=== PATIENT | male | born 1990 | race Two or more races ===

== ENCOUNTER 2023-09-21 18:50 | Inpatient (IN) | payer MEDICARE, MEDICAID, SELFPAY ==
--- NOTE | 2023-09-21 19:23 | PC.NURSE ---
Pt was accepted and admitted on the unit at 1905 via stretcher from [facility]. Skin check completed, skin intact. VSS, pt reports feeling safe on unit.
[2023-09-21 19:25] VITALS: BP 136/87; PULSE 84; RESP 18; TEMP 36.8; O2SAT 97
[2023-09-21 19:26] VITALS: BMI 33.5
[2023-09-21] MEDS: traZODone HCL 50 MG TABLET PO ×2 (21:16→22:18)
--- NOTE | 2023-09-21 21:31 | PC.ADMIT ---
Omar is a 33-year-old male admitted from [facility] ED to M3 on a CV for treatment of increased depression and SI. Pt signed a 3-day upon arrival. Tox screen positive for THC. Pt was recently at [facility] but was discharged after a few days because I was really overwhelmed. Crisis eval states that pt attempted to hang himself but pt denied this and stated I just had thoughts of it but didn't actually do it. I tried to hang myself in the past but I failed. I regret saying I want to hurt myself because I don't want to do that to my kids. 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 Pt stated he sold his home after he found his with someone else and he's been living with his mother but wants to get a place of his own. Upon arrival pt was pleasant and cooperative. Pt was very tearful and needed frequent reassurance about being here. Mood was depressed with congruent affect. Pt denied AH/VH. Thoughts are linear and organized. Pt reports poor appetite and 60 lb weight loss in a year. Pt reports poor sleep due to nightmares and hopes to take medication to help with this. Pt only takes Levothyroxine for s/p thyroidectomy. Pt does not have any psych providers but would like to be set up with providers upon discharge. Pt also has medical hx of albinism, hermansky-pudlak syndrome, and was also diagnosed with squamous cell carcinoma but has not followed up with providers. Pt reports feeling safe on the unit. Pt denies SI/HI but will reach out to staff if thoughts occur. Pt placed on 5-minute safety checks.
[2023-09-21] MEDS: hydrOXYzine HCL 25 MG TABLET PO (22:18)
[2023-09-22 07:51] VITALS: BP 104/54; PULSE 62; RESP 18; TEMP 36.7; O2SAT 96
[2023-09-22 08:38] LABS: Alanine Aminotransferase 17 U/L (0-40); Albumin Level 4.1 g/dL (3.5-5.0); Alkaline Phosphatase 104 U/L (39-117); Anion Gap 11 (12-20); Aspartate Amino Transferase 18 U/L (5-37); Bilirubin Total 1.1 mg/dL (0.0-1.0); Blood Urea Nitrogen 10 mg/dL (9-16); Calcium 9.6 mg/dL (8.4-10.2); Carbon Dioxide 25 mmol/L (22-29); Chloride 109 mmol/L (96-108); Cholesterol 164 mg/dL (<200); Creatinine Clr Calc Pharmacy 118.8; Estimated Glomerular Filt Rate > 60; Glucose Fasting 85 mg/dL (60-99); HDL Cholesterol 28 mg/dL (>40); LDL Cholesterol Calculated 116 mg/dL (<100); Potassium 3.9 mmol/L (3.3-5.1); Sodium 141 mmol/L (135-145); Total Protein 7.1 g/dL (6.5-8.0); Triglycerides 101 mg/dL (<150)
--- NOTE | 2023-09-22 11:17 | HO.PM.IMCN ---
History of Present Illness Data of Consult Service Date: 09/22/23 Primary Care Provider: Ann Butts MD HPI Reason for consult: Admission H&P Pt is a 33-year-old male with a PMH significant for?albinism, legally blind, hyperthyroidism s/p thyroidectomy in 2010, cannabis use disorder, and depression who is admitted to psychiatry unit for increasing depression with SI with plan to hang himself. Medical consult for admission H&P. Patient reports he has been smoking 12 g of marijuana daily but decided to cold turkey last and since then has been feeling increased anxiety and depression. Denies alcohol or any other substance use. Patient has a history of albinism and is legally blind with significant resting nystagmus for which he wears glasses and help him focus, though he still can not see fine details. Reports has had nystagmus since he was born. Denies any acute changes to his vision. Denies any acute medical complaints at this time. No chest pain/pressure, palpitations. Denies shortness of breath. No fever, chills, nausea, vomiting, abdominal pain. Labs reviewed, grossly unremarkable. Review of Systems Review of Systems: Chronic legal blindness Chronic nystagmus Patient denies any acute medical complaints [facility] Medical History (Updated 09/22/23 @ 12:19 by ADY Lobo) Hyperthyroidism Nystagmus Legally blind Albinism Surgical History (Updated 09/22/23 @ 12:18 by ADY Lobo) H/O thyroidectomy Social History Household Members: Family Housing: House Patient Tobacco Use Status: Never used Tobacco Use of substances other than those prescribed or required for medical reasons: Yes Substance Use Type: Marijuana Substance Use Frequency: Chronic Longstanding Last Used Substance: Just Prior to Admission Currently Displaying Signs/Symptoms of Drug Intoxication Withdrawal: No Any prior treatment program specific to substance use: No Have you been hit, kicked, punched, or otherwise hurt by someone within the past year? If so, by whom?: No Do you feel safe in your current relationship?: No Current Relationship Is there a partner from a previous relationship who is making you feel unsafe now?: No Are you made to feel afraid or neglected: No Advance Directives: No Advance Directives Information Provided: No Advance Directives on File: No Do you have thoughts of harming others: None Do you have a plan to hurt others: No Plan Recently lost weight without trying: Yes How much weight loss: 34pounds or more Eating poorly because of decreased appetite: Yes Nutrition screen score: 7 Nutrition Risks: No Nutritional Risk Poor oral hygiene: No Meds Allergies Allergy/AdvReac Type Severity Reaction Status Date / Time acetaminophen [From Tylenol] Allergy Unknown Verified 09/21/23 19:25 Penicillins Allergy Unknown Verified 09/21/23 19:25 lactose AdvReac Unknown Verified 09/21/23 19:25 Active Medications: Current Medications Al Hydroxide/Mg Hydroxide (Magnesium Hydrox/Alum Hydrox 30 Ml Oral.Susp) 30 ml PO Q6H PRN PRN Reason: Heartburn/Nausea Hydroxyzine HCl (Hydroxyzine Hcl 25 Mg Tablet) 25 mg PO Q6H PRN PRN Reason: Anxiety Last Admin: 09/21/23 22:18 Dose: 25 mg Magnesium Hydroxide (Milk Of Magnesia 30 Ml Oral.Susp) 30 ml PO DAILY PRN PRN Reason: Constipation Trazodone HCl (Trazodone Hcl 50 Mg Tablet) 50 mg PO BEDTIME MRX1 PRN PRN Reason: Insomnia Last Admin: 09/21/23 22:18 Dose: 50 mg Home Medications ?Medication ?Instructions ?Recorded ?Confirmed ?Last Taken ?Type levothyroxine 150 mcg tablet 150 mcg PO DAILY 09/21/23 09/21/23 09/21/23 08:00 History Physical Exam Vital Signs and Narrative: Vital Signs: Last Vital Signs Temp 98.0 F 09/22/23 07:51 Pulse 62 09/22/23 07:51 Resp 18 09/22/23 07:51 BP 104/54 L 09/22/23 07:51 Pulse Ox 96 09/22/23 07:51 O2 Del Method Room Air 09/22/23 07:51 BMI result Body Mass Index 33.5 General: AOx3, no acute distress Resp: CTA bilaterally CVS: S1, S2, RRR GI: +BS, NT, no distention Skin: Warm, dry Neuro: Cranial nerves II-XII grossly intact bilaterally. Motor grossly intact bilaterally. Significant resting nystagmus and strabismus. Extremities: No edema Psych: Flat affect Results Labs 09/22/23 08:05 Labs: Laboratory Results - last 24 hr 09/22/23 08:05 Anion Gap 11 L Estim Creat Clear Calc 118.8 Estimated GFR > 60 Fasting Glucose 85 Calcium 9.6 Total Bilirubin 1.1 H AST 18 ALT 17 Alkaline Phosphatase 104 Total Protein 7.1 Albumin 4.1 Triglycerides 101 Cholesterol 164 LDL Cholesterol, Calc 116 H HDL Cholesterol 28 L Assessment and Plan (1) Medical clearance for psychiatric admission: Status: Acute Plan Pt is a 33-year-old male with a PMH significant for?albinism, legally blind, hyperthyroidism s/p thyroidectomy in 2010, cannabis use disorder, and depression who is admitted to M3 psychiatry unit for increasing depression with SI with plan to hang himself. Medical consult for admission H&P. Mood disorder Plan as per Psychiatry Nystagmus and strabismus Congenital, secondary to albinism Patient has been legally blind since Patient denies any acute vision changes Should wear glasses while on the unit No additional workup indicated at this Hyperthyroidism S/P thyroidectomy in 2010 Continue levothyroxine Marijuana use disorder Reports smoking around 12 g daily Last used 1 week prior Plan as per Psychiatry Thank you for allowing us to participate in the care of this patient. Signing off at this time. Please re-consult if any acute complaints or issues arise.
[2023-09-22] MEDS: Levothyroxine Sodium 150 MCG TABLET PO (12:33)
--- NOTE | 2023-09-22 13:27 | P.HPPS_ITS ---
HPI Date of Service: 09/22/23 Chief Complaint: depression severe Sources of Information: patient interviewed, chart reviewed and crisis/core team assessment reviewed HPI Subjective Notes: Molina Warning, Conditional Voluntary and 3 Day Narrative: Patient is a 33 year old male with hx of MDD and PTSD, who presented to [facility] d/t suicidal ideation secondary to increased depressive symptoms. Per crisis report, pt was brought to ER by his mother after expressing suicidal ideation. Pt reported leaving inpatient too early due to being scared since it was his first inpatient admission . Pt reported increased depression and anxiety d/t life stress. Pt reported suicidal ideation with plan to hang himself. He reports poor appetite and poor sleep. denies HI/AH/VH. During admission assessment, pt presents alert, oriented, calm, cooperative. Pt reports feeling anxious and depressed ; pt stated, I was having thoughts of suicide and came to the hospital. I was at [facility] a month ago for the same thing but left too early. I tried to hang myself but I stopped because I thought it was selfish and didn't want to do that to my kids . 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 Because of the depression, I mishandled all my money. Now I'm living with my mother . Pt stated, I know that I need help and I'm willing to accept it. I can't stay here long because I have to return to work . Pt reported he signed 3 day notice. Pt denies SI/HI/VH/AH. He would like a referral to outpatient therapist and prescriber. Pt reports he would like help with my depression and sleep ; discussed prazosin and remeron;risks/benefits discussed; pt agreed to trial. Past Psychiatric History: SA: by hanging himself a month ago; reported he stopped himself d/t thinking he was selfish and didn't want to do that to my kids . Crisis report states he attempted to jump from [place] but was stopped prior to jumping ; pt reports this is not true and was walking past the bridge with no intention of jumping . denies any outpatient psychiatric providers. denies any hx of psychiatric medications. 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 Substance History: Marijuana. denies any other substance use. UTOX positive for cannabinoids. Trauma History: yes Diagnostics Vital Signs (24Hr): Vital Signs - 24 hr 09/21/23 19:25 09/22/23 07:51 Temperature 98.2 F 98.0 F Pulse Rate 84 62 Respiratory Rate 18 18 Blood Pressure 136/87 104/54 L Pulse Oximetry 97 96 Oxygen Delivery Method Room Air Room Air BMI result Body Mass Index 33.5 Labs 09/22/23 08:05 Labs: Laboratory Results - last 48 hr 09/22/23 08:05 Sodium 141 Potassium 3.9 Chloride 109 H Carbon Dioxide 25 Anion Gap 11 L BUN 10 Creatinine 0.91 Estim Creat Clear Calc 118.8 Estimated GFR > 60 Fasting Glucose 85 Calcium 9.6 Total Bilirubin 1.1 H AST 18 ALT 17 Alkaline Phosphatase 104 Total Protein 7.1 Albumin 4.1 Triglycerides 101 Cholesterol 164 LDL Cholesterol, Calc 116 H HDL Cholesterol 28 L Meds/Allergies Meds Home Medications ?Medication ?Instructions ?Recorded ?Confirmed ?Type levothyroxine 150 mcg tablet 150 mcg PO DAILY 09/21/23 09/21/23 History Allergies Allergies Allergy/AdvReac Type Severity Reaction Status Date / Time acetaminophen [From Tylenol] Allergy Unknown Verified 09/21/23 19:25 Penicillins Allergy Unknown Verified 09/21/23 19:25 lactose AdvReac Unknown Verified 09/21/23 19:25 Mental Status Exam Mental Status Exam Narrative: Pt is alert and oriented; behavior is cooperative and calm; dressed in casual attire; mood is described as depressed ; eye contact appropriate; Speech is normal rate, volume and not pressured; thought process is organized and goal directed; Thought content is on tx; otherwise pertinent to relevant topics and without any delusional content, paranoid ideations or grandiosity; denies SI/HI/VH/AH. Assessment & Plan Assessment & Plan (1) MDD (major depressive disorder), recurrent episode, severe: Status: Acute Code(s): F33.2 - Major depressive disorder, recurrent severe without psychotic features (2) PTSD (post-traumatic stress disorder): Status: Acute Code(s): F43.10 - Post-traumatic stress disorder, unspecified Plan Patient is a 33 year old male with hx of MDD who presented to [facility] d/t suicidal ideation secondary to increased depressive symptoms. Plan: / 3 day notice 15 minute safety checks referral to outpatient therapist and prescriber discharge planning Start: Prazosin 1mg PO bedtime Remeron 15mg PO bedtime Patient educated on: diagnosis, medication risk/benefits and therapeutic strategies Informed Consent: understands Reason for continued inpatient stay Substantial Risk for: harm to self and med/psych decompensation Statement Statement: I have reviewed the history and physical and performed a pertinent examination on my patient. No changes have occurred unless specified. If the History and Physical was not performed prior to admission, the Hospitalist's service will be consulted for completing the admission physical. Time Spent With Patient Time: Total time managing care of this patient today _60___ minutes.
[2023-09-22 20:00] VITALS: BP 149/70; PULSE 108; RESP 16; TEMP 36.3; O2SAT 97
[2023-09-22] MEDS: Mirtazapine 15 MG TABLET PO (20:07)
[2023-09-22] MEDS: hydrOXYzine HCL 25 MG TABLET PO (20:07)
[2023-09-22] MEDS: traZODone HCL 50 MG TABLET PO (20:07)
[2023-09-22 20:08] VITALS: BP 149/70
[2023-09-22] MEDS: Prazosin HCL 1 MG CAPSULE PO (20:08)
[2023-09-23] MEDS: Levothyroxine Sodium 150 MCG TABLET PO (06:28)
[2023-09-23 08:00] VITALS: BP 120/68; PULSE 61; RESP 16; TEMP 36.8; O2SAT 95
--- NOTE | 2023-09-23 13:08 | P.PNPSI_ITS ---
Subjective Subjective Date of Service: 09/23/23 Reason For Visit: depression severe Subjective Notes: 3 Day Interim History: Reviewed with Dr. Hughes. Pt reports feeling okay today; pt stated, I woke up in a better mood today. I'm trying to think about the future. I plan on following through with outpatient therapist and doctor . Pt reports sleeping well. denies SI/HI/VH/AH. Medication Compliance: Yes Side effects from medications: No Attending Groups: Yes Review of Systems Review of Systems Chronic legal blindness Chronic nystagmus Patient denies any acute medical complaints Constitutional: Reports as per HPI Eyes: Reports as per HPI Reports as per HPI Cardiovascular: Reports as per HPI Respiratory: Reports as per HPI Gastrointestinal: Reports as per HPI Genitourinary: Reports as per HPI Musculoskeletal: Reports as per HPI Skin/Breast: Reports as per HPI Reports as per HPI Psychiatric: Reports as per HPI Endocrine: Reports as per HPI Hematologic/Lymphatic: Reports as per HPI Allergic/Immunologic: Reports as per HPI Mental Status Exam Mental Status Exam Narrative: Pt is alert and oriented; behavior is cooperative and calm; dressed in casual attire; mood is described as okay ; eye contact appropriate; Speech is normal rate, volume and not pressured; thought process is organized and goal directed; Thought content is on tx; otherwise pertinent to relevant topics and without any delusional content, paranoid ideations or grandiosity; denies SI/HI/VH/AH. Diagnostics Vital Signs (24Hr): Vital Signs - 24 hr 09/22/23 20:00 09/22/23 20:08 09/23/23 08:00 Temperature 97.4 F 98.2 F Pulse Rate 108 H 61 Respiratory Rate 16 16 Blood Pressure 149/70 H 149/70 H 120/68 Pulse Oximetry 97 95 Oxygen Delivery Method Room Air Room Air BMI result Body Mass Index 33.5 Labs 09/22/23 08:05 Labs: Laboratory Results - last 48 hr 09/22/23 08:05 Sodium 141 Potassium 3.9 Chloride 109 H Carbon Dioxide 25 Anion Gap 11 L BUN 10 Creatinine 0.91 Estim Creat Clear Calc 118.8 Estimated GFR > 60 Fasting Glucose 85 Calcium 9.6 Total Bilirubin 1.1 H AST 18 ALT 17 Alkaline Phosphatase 104 Total Protein 7.1 Albumin 4.1 Triglycerides 101 Cholesterol 164 LDL Cholesterol, Calc 116 H HDL Cholesterol 28 L Medications Medications Current Medications Al Hydroxide/Mg Hydroxide (Magnesium Hydrox/Alum Hydrox 30 Ml Oral.Susp) 30 ml PO Q6H PRN PRN Reason: Heartburn/Nausea Hydroxyzine HCl (Hydroxyzine Hcl 25 Mg Tablet) 25 mg PO Q6H PRN PRN Reason: Anxiety Last Admin: 09/22/23 20:07 Dose: 25 mg Levothyroxine Sodium (Levothyroxine Sodium 150 Mcg Tablet) 150 mcg PO DAILY@0600 [facility] Last Admin: 09/23/23 06:28 Dose: 150 mcg Magnesium Hydroxide (Milk Of Magnesia 30 Ml Oral.Susp) 30 ml PO DAILY PRN PRN Reason: Constipation Mirtazapine (Mirtazapine 15 Mg Tablet) 15 mg PO BEDTIME ROSANA Last Admin: 09/22/23 20:07 Dose: 15 mg Prazosin HCl (Prazosin Hcl 1 Mg Capsule) 1 mg PO BEDTIME [facility]; Protocol Last Admin: 09/22/23 20:08 Dose: 1 mg Trazodone HCl (Trazodone Hcl 50 Mg Tablet) 50 mg PO BEDTIME MRX1 PRN PRN Reason: Insomnia Last Admin: 09/22/23 20:07 Dose: 50 mg Allergies Allergies Allergy/AdvReac Type Severity Reaction Status Date / Time acetaminophen [From Tylenol] Allergy Unknown Verified 09/21/23 19:25 Penicillins Allergy Unknown Verified 09/21/23 19:25 lactose AdvReac Unknown Verified 09/21/23 19:25 Assessment & Plan Assessment & Plan (1) MDD (major depressive disorder), recurrent episode, severe: Status: Acute Code(s): F33.2 - Major depressive disorder, recurrent severe without psychotic features (2) PTSD (post-traumatic stress disorder): Status: Acute Code(s): F43.10 - Post-traumatic stress disorder, unspecified Plan Patient is a 33 year old male with hx of MDD who presented to [facility] d/t suicidal ideation secondary to increased depressive symptoms. Plan: / 3 day notice 15 minute safety checks referral to outpatient therapist and prescriber discharge planning Start: Prazosin 1mg PO bedtime Remeron 15mg PO bedtime 09/22: Pt reports feeling okay today; pt stated, I woke up in a better mood today. I'm trying to think about the future. I plan on following through with outpatient therapist and doctor . Pt reports sleeping well. denies SI/HI/VH/AH. Continue current tx plan. Patient educated on: diagnosis, medication risk/benefits and therapeutic strategies Informed Consent: understands Reason for continued inpatient stay Substantial Risk for: med/psych decompensation Time Spent With Patient Time: Total time managing care of this patient today _20___ minutes.
[2023-09-23] MEDS: Triamcinolone Acet 0.1 % Cream 15 GM TUBE 1 APPL TOPICAL (18:29)
[2023-09-23 20:00] VITALS: BP 122/68; PULSE 94; RESP 16; TEMP 37.3; O2SAT 96
[2023-09-23] MEDS: traZODone HCL 50 MG TABLET PO ×2 (20:40→22:01)
[2023-09-23] MEDS: Mirtazapine 15 MG TABLET PO (20:40)
[2023-09-23 20:47] VITALS: BP 122/68
[2023-09-23] MEDS: Prazosin HCL 1 MG CAPSULE PO (20:47)
[2023-09-24 07:40] VITALS: BP 102/59; PULSE 69; RESP 14; TEMP 36.9; O2SAT 95
[2023-09-24] MEDS: Levothyroxine Sodium 150 MCG TABLET PO (08:44)
[2023-09-24] MEDS: Triamcinolone Acet 0.1 % Cream 15 GM TUBE 1 APPL TOPICAL (10:35)
--- NOTE | 2023-09-24 17:00 | HO.PSYCHPN ---
Subjective Subjective Date of Service: 09/24/23 Reason For Visit: depression severe Interim History: declines any med changes despite poor sleep and nightmares. no requests or complaints otherwise. per staff, brighter yesterday. anxious. denies depression. kept to self. tearful this morning. Mental Status Exam Mental Status Exam Narrative: Pt is alert and oriented; behavior is cooperative and calm; dressed in casual attire; mood is described as okay ; eye contact appropriate; Speech is normal rate, volume and not pressured; thought process is organized and goal directed; Thought content is on tx; otherwise pertinent to relevant topics and without any delusional content, paranoid ideations or grandiosity; denies SI/HI/VH/AH. Diagnostics Vital Signs (24Hr): Vital Signs - 24 hr 09/23/23 20:00 09/23/23 20:47 09/24/23 07:40 Temperature 99.1 F 98.5 F Pulse Rate 94 69 Respiratory Rate 16 14 Blood Pressure 122/68 122/68 102/59 L Pulse Oximetry 96 95 Oxygen Delivery Method Room Air Room Air BMI result Body Mass Index 33.5 Labs 09/22/23 08:05 Medications Medications Current Medications Al Hydroxide/Mg Hydroxide (Magnesium Hydrox/Alum Hydrox 30 Ml Oral.Susp) 30 ml PO Q6H PRN PRN Reason: Heartburn/Nausea Hydroxyzine HCl (Hydroxyzine Hcl 25 Mg Tablet) 25 mg PO Q6H PRN PRN Reason: Anxiety Last Admin: 09/22/23 20:07 Dose: 25 mg Levothyroxine Sodium (Levothyroxine Sodium 150 Mcg Tablet) 150 mcg PO DAILY@0600 [facility] Last Admin: 09/24/23 08:44 Dose: 150 mcg Magnesium Hydroxide (Milk Of Magnesia 30 Ml Oral.Susp) 30 ml PO DAILY PRN PRN Reason: Constipation Mirtazapine (Mirtazapine 15 Mg Tablet) 15 mg PO BEDTIME ROSANA Last Admin: 09/23/23 20:40 Dose: 15 mg Prazosin HCl (Prazosin Hcl 1 Mg Capsule) 1 mg PO BEDTIME [facility]; Protocol Last Admin: 09/23/23 20:47 Dose: 1 mg Trazodone HCl (Trazodone Hcl 50 Mg Tablet) 50 mg PO BEDTIME MRX1 PRN PRN Reason: Insomnia Last Admin: 09/23/23 22:01 Dose: 50 mg Triamcinolone Acetonide (Triamcinolone Acet 0.1 % Cream 15 Gm Tube) 1 appl TOPICAL DAILY ROSANA; Protocol Last Admin: 09/24/23 10:35 Dose: 1 appl Allergies Allergies Allergy/AdvReac Type Severity Reaction Status Date / Time acetaminophen [From Tylenol] Allergy Unknown Verified 09/21/23 19:25 Penicillins Allergy Unknown Verified 09/21/23 19:25 lactose AdvReac Unknown Verified 09/21/23 19:25 Assessment & Plan Assessment & Plan (1) MDD (major depressive disorder), recurrent episode, severe: Status: Acute Code(s): F33.2 - Major depressive disorder, recurrent severe without psychotic features (2) PTSD (post-traumatic stress disorder): Status: Acute Code(s): F43.10 - Post-traumatic stress disorder, unspecified Plan Patient is a 33 year old male with hx of MDD who presented to [facility] d/t suicidal ideation secondary to increased depressive symptoms. Plan: day notice 15 minute safety checks referral to outpatient therapist and prescriber discharge planning Start: Prazosin 1mg PO bedtime Remeron 15mg PO bedtime 09/22: Pt reports feeling okay today; pt stated, I woke up in a better mood today. I'm trying to think about the future. I plan on following through with outpatient therapist and doctor . Pt reports sleeping well. denies SI/HI/VH/AH. Continue current tx plan. 09/23: declines HS med changes despite insomnia with nightmares. continue current mgmt. Reason for continued inpatient stay Substantial Risk for: inability to function Time Spent With Patient Time: Total time managing care of this patient today ____ minutes.
[2023-09-24 20:00] VITALS: BP 105/57; PULSE 80; RESP 18; TEMP 37.2; O2SAT 95
[2023-09-24 20:36] VITALS: BP 105/57
[2023-09-24] MEDS: Prazosin HCL 1 MG CAPSULE PO (20:36)
[2023-09-24] MEDS: Mirtazapine 15 MG TABLET PO (20:36)
[2023-09-24] MEDS: traZODone HCL 50 MG TABLET PO (21:42)
[2023-09-25] MEDS: traZODone HCL 50 MG TABLET PO ×3 (00:26→22:26)
[2023-09-25] MEDS: Levothyroxine Sodium 150 MCG TABLET PO (06:37)
[2023-09-25 07:25] VITALS: BP 102/51; PULSE 65; RESP 16; TEMP 37; O2SAT 93
[2023-09-25] MEDS: Triamcinolone Acet 0.1 % Cream 15 GM TUBE 1 APPL TOPICAL (13:23)
--- NOTE | 2023-09-25 15:23 | HO.PSYCHPN ---
Subjective Subjective Date of Service: 09/25/23 Reason For Visit: depression severe Interim History: i'm all right. feeling way better than at admission. per staff, attending groups. wants therapy referrals. Mental Status Exam Mental Status Exam Narrative: Pt is alert and oriented; behavior is cooperative and calm; dressed in casual attire; mood is described as i'm all right ; eye contact appropriate; Speech is normal rate, volume and not pressured; thought process is organized and goal directed; Thought content is on tx; otherwise pertinent to relevant topics and without any delusional content, paranoid ideations or grandiosity; denies SI/HI/VH/AH. Diagnostics Vital Signs (24Hr): Vital Signs - 24 hr 09/24/23 20:00 09/24/23 20:36 09/25/23 07:25 Temperature 98.9 F 98.6 F Pulse Rate 80 65 Respiratory Rate 18 16 Blood Pressure 105/57 L 105/57 L 102/51 L Pulse Oximetry 95 93 Oxygen Delivery Method Room Air Room Air BMI result Body Mass Index 33.5 Labs 09/22/23 08:05 Medications Medications Current Medications Al Hydroxide/Mg Hydroxide (Magnesium Hydrox/Alum Hydrox 30 Ml Oral.Susp) 30 ml PO Q6H PRN PRN Reason: Heartburn/Nausea Hydroxyzine HCl (Hydroxyzine Hcl 25 Mg Tablet) 25 mg PO Q6H PRN PRN Reason: Anxiety Last Admin: 09/22/23 20:07 Dose: 25 mg Levothyroxine Sodium (Levothyroxine Sodium 150 Mcg Tablet) 150 mcg PO DAILY@0600 ROSANA Last Admin: 09/25/23 06:37 Dose: 150 mcg Magnesium Hydroxide (Milk Of Magnesia 30 Ml Oral.Susp) 30 ml PO DAILY PRN PRN Reason: Constipation Mirtazapine (Mirtazapine 15 Mg Tablet) 15 mg PO BEDTIME ROSANA Last Admin: 09/24/23 20:36 Dose: 15 mg Prazosin HCl (Prazosin Hcl 1 Mg Capsule) 1 mg PO BEDTIME ROSANA; Protocol Last Admin: 09/24/23 20:36 Dose: 1 mg Trazodone HCl (Trazodone Hcl 50 Mg Tablet) 50 mg PO BEDTIME MRX1 PRN PRN Reason: Insomnia Last Admin: 09/25/23 00:26 Dose: 50 mg Triamcinolone Acetonide (Triamcinolone Acet 0.1 % Cream 15 Gm Tube) 1 appl TOPICAL DAILY ROSANA; Protocol Last Admin: 09/25/23 13:23 Dose: 1 appl Allergies Allergies Allergy/AdvReac Type Severity Reaction Status Date / Time acetaminophen [From Tylenol] Allergy Unknown Verified 09/21/23 19:25 Penicillins Allergy Unknown Verified 09/21/23 19:25 lactose AdvReac Unknown Verified 09/21/23 19:25 Assessment & Plan Assessment & Plan (1) MDD (major depressive disorder), recurrent episode, severe: Status: Acute Code(s): F33.2 - Major depressive disorder, recurrent severe without psychotic features (2) PTSD (post-traumatic stress disorder): Status: Acute Code(s): F43.10 - Post-traumatic stress disorder, unspecified Plan Patient is a 33 year old male with hx of MDD who presented to [facility] d/t suicidal ideation secondary to increased depressive symptoms. Plan: CV/ day notice 15 minute safety checks referral to outpatient therapist and prescriber discharge planning Start: Prazosin 1mg PO bedtime Remeron 15mg PO bedtime 09/22: Pt reports feeling okay today; pt stated, I woke up in a better mood today. I'm trying to think about the future. I plan on following through with outpatient therapist and doctor . Pt reports sleeping well. denies SI/HI/VH/AH. Continue current tx plan. 09/23: declines HS med changes despite insomnia with nightmares. continue current mgmt. 09/24: reports substantial improvement since admission. continue current mgmt. 3-day notice up tomorrow. Reason for continued inpatient stay Substantial Risk for: rapid decompensation Time Spent With Patient Time: Total time managing care of this patient today ____ minutes.
[2023-09-25 20:00] VITALS: BP 124/60; PULSE 80; RESP 16; TEMP 36.5; O2SAT 98
[2023-09-26] MEDS: Levothyroxine Sodium 150 MCG TABLET PO (06:21)
[2023-09-26 08:00] VITALS: BP 119/83; PULSE 70; RESP 16; TEMP 36.2; O2SAT 98
[2023-09-26] MEDS: Triamcinolone Acet 0.1 % Cream 15 GM TUBE 1 APPL TOPICAL (09:20)
--- NOTE | 2023-09-26 11:06 | PM.PSYDC ---
DS: Providers Provider Date of Service: 09/26/23 Date of admission: 09/21/23 18:50 Date of discharge: 09/26/23 Primary care physician: Ann Butts MD Admitting clinician: Sara Nickerson Attending physician on admission: John Hughes Consults: 09/21/23 19:27 Consult to Hospitalist Routine Comment: Consulting Provider: Hospitalist Reason For Exam: Direct admission Attending physician on discharge: John Hughes Discharging clinician: Sara Nickerson DS: Diagnosis Discharge Diagnosis (1) MDD (major depressive disorder), recurrent episode, severe: Status: Acute (2) PTSD (post-traumatic stress disorder): Status: Acute DS: Medications Discharge Medications Home Medications: Home Medications ?Medication ?Instructions ?Recorded ?Confirmed levothyroxine 150 mcg tablet 150 mcg PO DAILY 09/21/23 09/21/23 Mental Status Exam Mental Status Exam Narrative: Pt is alert and oriented; behavior is cooperative, friendly and calm; dressed in casual attire; mood is described as good ; eye contact appropriate; Speech is normal rate, volume and not pressured; thought process is organized and goal directed; Thought content is on tx; otherwise pertinent to relevant topics and without any delusional content, paranoid ideations or grandiosity; denies SI/HI/VH/AH. Data Data Completed and Pending Completed studies during hospitalization [Text1]: 09/22/23 08:05 Sodium 141 Potassium 3.9 Chloride 109 H Carbon Dioxide 25 Anion Gap 11 L BUN 10 Creatinine 0.91 Estim Creat Clear Calc 118.8 Estimated GFR > 60 Fasting Glucose 85 Calcium 9.6 Total Bilirubin 1.1 H AST 18 ALT 17 Alkaline Phosphatase 104 Total Protein 7.1 Albumin 4.1 Triglycerides 101 Cholesterol 164 LDL Cholesterol, Calc 116 H HDL Cholesterol 28 L DS: Summary Hospital Course Hospital Course: Patient is a 33 year old male with hx of MDD and PTSD, who presented to [facility] d/t suicidal ideation secondary to increased depressive symptoms. Per crisis report, pt was brought to ER by his mother after expressing suicidal ideation. Pt reported leaving inpatient too early due to being scared since it was his first inpatient admission . Pt reported increased depression and anxiety d/t life stress. Pt reported suicidal ideation with plan to hang himself. He reports poor appetite and poor sleep. denies HI/AH/VH. During admission assessment, pt presents alert, oriented, calm, cooperative. Pt reports feeling anxious and depressed ; pt stated, I was having thoughts of suicide and came to the hospital. I was at [facility] a month ago for the same thing but left too early. I tried to hang myself but I stopped because I thought it was selfish and didn't want to do that to my kids . 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 Because of the depression, I mishandled all my money. Now I'm living with my mother . Pt stated, I know that I need help and I'm willing to accept it. I can't stay here long because I have to return to work . Pt reported he signed 3 day notice. Pt denies SI/HI/VH/AH. He would like a referral to outpatient therapist and prescriber. Pt reports he would like help with my depression and sleep ; discussed prazosin and remeron;risks/benefits discussed; pt agreed to trial. During hospital course, CV/ 3 day notice 15 minute safety checks referral to outpatient therapist and prescriber discharge planning Start: Prazosin 1mg PO bedtime Remeron 15mg PO bedtime Pt reports feeling okay today; pt stated, I woke up in a better mood today. I'm trying to think about the future. I plan on following through with outpatient therapist and doctor . Pt reports sleeping well. denies SI/HI/VH/AH. Continue current tx plan. declines HS med changes despite insomnia with nightmares. continue current mgmt. reports substantial improvement since admission. continue current mgmt. 3-day notice up tomorrow. Pt reports feeling good today; pt stated, I'm happy to be leaving here. I was able to talk to people about how I was feeling and look at it from a different perspective. I feel like I'm able to cope with my situation without medications. I'm not interested in continuing to take psychiatric meds right now. I'm going to follow through and see a therapist . Pt denies SI/HI/VH/AH. Time spent discussing smoking cessation with patient: 3 to 10 minutes Status at Discharge Cognitive/behavioral status at discharge: Patient was interviewed prior to discharge and found to be fully oriented and without SI or HI. Patient has insight and demonstrates good judgment in terms of wanting to pursue treatment. Patient has a safety plan that includes presenting to the closest ER or calling 911 if feeling unsafe. Functional status at discharge: independent ambulation Overall status at discharge: patient is back to baseline Time Spent with Patient Time attestation: Total time managing care of this patient today _20___ minutes. Time spent: Less than 30 minutes Discharge Plan Discharge Anticipated Discharge Date/Time: 09/26/23 11:45 Patient Disposition: Home, Self-Care Discharge Diagnosis: MDD, PTSD Referrals: [facility] Therapy Intake [Other] - 10/03/23 10:00 am (Please arrive 15 minutes prior to your appointment and please bring your insurance card with you ) [facility] Medication Provider [Other] - 11/21/23 2:00 pm Ann Butts MD [Primary Care Provider] - 1 Week Discharge Medications: Continued levothyroxine 150 mcg tablet 150 mcg PO DAILY Discharge Orders: Discharge Order (Routine); Ordered 09/26/23 Ordered By: Sara Nickerson Diet: Regular diet Activity on Discharge: As tolerated Stand Alone Forms: Patient Portal Discharge page, Community Support Print Language: Welsh Care Plan Goals: Maintain mood and safe behaviors Take medications as prescribed Practice coping skills Continue with outpatient providers and reach out to them as needed Health Concerns: Mood stability and behaviors Plan of Treatment: Follow up with your PCP, psychiatric provider and other outpatient providers regarding above concerns Take medications as prescribed Assessment: Patient was interviewed prior to discharge and found to be fully oriented and without SI or HI. Patient has insight and demonstrates good judgment in terms of wanting to pursue treatment. Patient has a safety plan that includes presenting to the closest ER or calling 911 if feeling unsafe.
== END 2023-09-26 11:33 | disposition home or self-care (01) | DRG 885 ==
PROVIDERS: Psychiatry & Neurology Psychiatry; Admitting Provider Psychiatry & Neurology Psychiatry; PCP Internal Medicine; Responsible Provider Registered Nurse; Visit Provider Psychiatry & Neurology Psychiatry
DX: F33.2 Major depressive disorder, recurrent severe without psychotic features (principal); E70.30 Albinism, unspecified; E89.0 Postprocedural hypothyroidism; H54.8 Legal blindness, as defined in USA; F43.10 Post-traumatic stress disorder, unspecified; Z79.890 Hormone replacement therapy
CPT/HCPCS: 36415; 80053; 80061

== ENCOUNTER → 2023-09-21 18:50 | Outpatient (BNV) | payer MEDICARE, SELFPAY | PROVIDERS: Admitting Provider Psychiatry & Neurology Psychiatry; PCP Internal Medicine; Responsible Provider Registered Nurse; Visit Provider Registered Nurse | DX: F33.2 Major depressive disorder, recurrent severe without psychotic features (principal); F43.11 Post-traumatic stress disorder, acute | CPT/HCPCS: 90792; 99231; 99238 ==

== ENCOUNTER → 2023-09-21 18:50 | Outpatient (BNV) | payer MEDICARE, SELFPAY | PROVIDERS: Admitting Provider Psychiatry & Neurology Psychiatry; PCP Internal Medicine; Visit Provider Student in an Organized Health Care Education/Training Program | DX: Z00.8 Encounter for other general examination (principal) | CPT/HCPCS: 99222 ==